=== PATIENT | male | born 1975 | race Asian ===

== ENCOUNTER 2023-12-13 22:12 | Emergency (ER) | payer OTHER ==
[~2023-12-13] VITALS: Ht 175.3 cm; Wt 76.5 kg
[2023-12-13 22:22] VITALS: O2SAT 98
[2023-12-13 22:29] VITALS: BP 150/101; PULSE 76; RESP 18; TEMP 98.4; O2SAT 99
== END 2023-12-13 23:30 | disposition left against medical advice (07) ==
LOC: ER 22:12
DX: M54.9 Dorsalgia, unspecified (principal); Z53.21 Procedure and treatment not carried out due to patient leaving prior to being seen by health care provider